=== PATIENT | female | born 1950 | race Asian ===

== ENCOUNTER 2017-12-19 00:41 | Inpatient (IN) | payer MEDICARE, OTHER ==
[~2017-12-19] VITALS: Ht 149.9 cm; Wt 56.3 kg
[2017-12-19] MEDS ORDERED: METO-264 PO (01:05)
[2017-12-19 01:26] LABS: BASOPHILS # (AUTO) 0.04 x10^3/uL (0-0.1); BASOPHILS % (AUTO) 0 % (0-1); EOSINOPHILS % (AUTO) 5 % (1-7); LYMPHOCYTES # (AUTO) 3.13 x10^3/uL (1-3.4); LYMPHOCYTES % (AUTO) 33 % (22-44); MD NO; MEAN CORPUSCULAR HEMOGLOBIN 29.5 pg (27.0-34.8); MEAN CORPUSCULAR HGB CONC 33.6 g/dL (32.4-35.8); MEAN CORPUSCULAR VOLUME 87.8 fL (80-100); MEAN PLATELET VOLUME 7.7 fL (7.4-10.4); MONOCYTES # (AUTO) 0.49 x10^3/uL (0.2-0.8); MONOCYTES % (AUTO) 5 % (2-9); NEUTROPHILS # (AUTO) 5.27 x10^3/uL (1.8-6.8); NEUTROPHILS % (AUTO) 56 % (42-75); PLATELET COUNT 305 x10^3/uL (130-400); RED BLOOD COUNT 4.61 x10^6/uL (3.82-5.3); RED CELL DISTRIBUTION WIDTH 14.1 % (9.6-15.2)
[2017-12-19 01:36] LABS: ALBUMIN 3.2 g/dL (3.4-5.0); ANION GAP 7 mmol/L (5-15); CALCIUM 8.7 mg/dL (8.5-10.1); CHLORIDE 110 mmol/L (98-107); CREATININE 1.11 mg/dL (0.55-1.02)
[2017-12-19] MEDS ORDERED: HEPARIN 5,000 UNITS/ML, 1ML IV PRN (02:30)
[2017-12-19] MEDS ORDERED: HEPARIN 25,000 UNITS/500ML PMX 500 ML IV PRN ×2 (02:30→04:12)
[2017-12-19] MEDS ORDERED: HEPARIN 5,000 UNITS/ML, 1ML IV ONE (02:30)
[2017-12-19] MEDS ORDERED: OMNIPAQUE 350 MG/ML, 100ML BOTTLE ONE (02:40)
[2017-12-19] MEDS ORDERED: DOCUSATE 100 MG CAPSULE PO PRN (03:30)
[2017-12-19] MEDS ORDERED: morphine SULFATE 10 MG/ML, 1ML IVPush PRN (03:30)
[2017-12-19] MEDS ORDERED: NITROGLYCERIN 0.4 MG BOTTLE (25 TABS) SL PRN (03:30)
[2017-12-19] MEDS ORDERED: ONDANSETRON 2MG/ML, 2ML IVPush PRN (03:30)
[2017-12-19] MEDS ORDERED: BISACODYL 10 MG SUPP PR PRN (03:30)
[2017-12-19] MEDS ORDERED: LABETALOL 5MG/ML, 20ML IVPush PRN (03:30)
[2017-12-19] MEDS ORDERED: POLYETHYLENE GLYCOL 17 GM PACKET PO PRN (03:30)
[2017-12-19] MEDS ORDERED: PROMETHAZINE 25 MG/ML, 1ML IM PRN (03:30)
[2017-12-19] MEDS ORDERED: ACETAMINOPHEN 325 MG TABLET PO PRN (03:30)
[2017-12-19] MEDS ORDERED: OXYcodone IR 5MG TABLET PO PRN (03:30)
[2017-12-19] MEDS ORDERED: GABAPENTIN 300 MG CAPSULE PO PRN (03:30)
[2017-12-19] MEDS ORDERED: ONDANSETRON ODT 4 MG PO PRN (03:30)
[2017-12-19] MEDS: SODIUM CHLORIDE 0.9% 1,000 ML IV SCH ×3 (03:33→15:49)
[2017-12-19] MEDS: ASPIRIN 325 MG TABLET EC PO SCH (05:50)
[2017-12-19 06:13] VITALS: BP 150/78
[2017-12-19 06:50] LABS: TROPONIN I 0.247 ng/mL (0.000-0.045)
[2017-12-19 07:18] LABS: FREE T4 (FREE THYROXINE) 1.3 ng/dL (0.76-1.46); THYROID STIMULATING HORMONE 1.72 mIU/L (0.358-3.740)
[2017-12-19 07:49] LABS: HEMOGLOBIN A1C 6.2 % (4.2-6.3)
[2017-12-19 08:31] VITALS: BP 181/80
[2017-12-19] MEDS: METOPROLOL SUCCINATE 50 MG TAB.ER.24H PO SCH (08:44)
[2017-12-19] MEDS: FAMOTIDINE 20 MG/2 ML IVPush SCH ×2 (08:44→21:29)
[2017-12-19 08:47] VITALS: BP 194/65
[2017-12-19] MEDS: hydrALAzine 20 MG/ML, 1ML IVPush PRN ×2 (09:07→16:02)
[2017-12-19 10:59] VITALS: BP 123/64
[2017-12-19] MEDS ORDERED: MIDAZOLAM 1 MG/ML, 2ML ONE (11:44)
[2017-12-19] MEDS ORDERED: VERAPAMIL 2.5 MG/ML, 2ML ONE (11:44)
[2017-12-19] MEDS ORDERED: LIDOCAINE-MPF 2%, 2ML ONE (11:44)
[2017-12-19] MEDS ORDERED: FENTANYL PF 100 MCG/2ML ONE (11:44)
[2017-12-19] MEDS ORDERED: BIVALIRUDIN 250 MG ONE (11:45)
[2017-12-19] MEDS ORDERED: TICAGRELOR 90 MG TABLET ONE (11:45)
[2017-12-19] MEDS ORDERED: HEPARIN 1,000 UNITS/ML, 10ML ONE (12:02)
[2017-12-19] MEDS ORDERED: ONDANSETRON 2MG/ML, 2ML ONE ×2 (12:26→12:35)
[2017-12-19 12:40] LABS: TROPONIN I 0.207 ng/mL (0.000-0.045)
[2017-12-19] MEDS ORDERED: PHENYLEPHRINE 10 MG/ML ONE (13:13)
[2017-12-19] MEDS ORDERED: BIVALIRUDIN 500 MG in DEXTROSE 5% 100 ML IV SCH (13:30)
[2017-12-19] MEDS: TICAGRELOR 90 MG TABLET PO SCH (21:29)
[2017-12-20] MEDS: SODIUM CHLORIDE 0.9% 1,000 ML IV SCH (01:18)
[2017-12-20 04:00] VITALS: BP 142/50
[2017-12-20 04:23] LABS: BASOPHILS # (AUTO) 0.07 x10^3/uL (0-0.1); BASOPHILS % (AUTO) 1 % (0-1); EOSINOPHILS # (AUTO) 0.05 x10^3/uL (0-0.4); EOSINOPHILS % (AUTO) 1 % (1-7); LYMPHOCYTES % (AUTO) 26 % (22-44); MD NO; MEAN CORPUSCULAR HEMOGLOBIN 29.3 pg (27.0-34.8); MEAN CORPUSCULAR HGB CONC 33.7 g/dL (32.4-35.8); MEAN PLATELET VOLUME 7.5 fL (7.4-10.4); MONOCYTES % (AUTO) 7 % (2-9); NEUTROPHILS # (AUTO) 6.22 x10^3/uL (1.8-6.8); NEUTROPHILS % (AUTO) 65 % (42-75); PLATELET COUNT 283 x10^3/uL (130-400); RED BLOOD COUNT 4.16 x10^6/uL (3.82-5.3); RED CELL DISTRIBUTION WIDTH 14.2 % (9.6-15.2)
[2017-12-20 04:32] LABS: ALBUMIN 2.9 g/dL (3.4-5.0); CHLORIDE 115 mmol/L (98-107)
[2017-12-20 04:34] LABS: ALKALINE PHOSPHATASE 74 U/L (45-117); HDL CHOLESTEROL (DIRECT) 37 mg/dL (40-60); TOTAL PROTEIN 7.3 g/dL (6.4-8.2)
[2017-12-20 04:35] LABS: ALANINE AMINOTRANSFERASE 20 U/L (12-78); ANION GAP 9 mmol/L (5-15); CALCIUM 8.3 mg/dL (8.5-10.1)
[2017-12-20 04:38] LABS: BILIRUBIN,TOTAL 0.5 mg/dL (0.2-1.0); CHOL/HDL RATIO 4.3; CHOLESTEROL, TOTAL 160 mg/dL (140-239); CREATININE 1.06 mg/dL (0.55-1.02); HDL CHOL % 23 % (28-40); LDL CHOLESTEROL,CALCULATED 87 mg/dL (54-169); LDL/HDL RATIO 2.4 (0.5-3.0); TRIGLYCERIDES 178 mg/dL (50-200); VLDL CHOLESTEROL 36 mg/dL (0-25)
[2017-12-20] MEDS: ASPIRIN 325 MG TABLET EC PO SCH (06:40)
[2017-12-20] MEDS: METOPROLOL SUCCINATE 50 MG TAB.ER.24H PO SCH (08:39)
[2017-12-20] MEDS: ASPIRIN 81 MG TABLET EC PO SCH (08:39)
[2017-12-20] MEDS: FAMOTIDINE 20 MG/2 ML IVPush SCH ×2 (08:39→20:58)
[2017-12-20] MEDS: TICAGRELOR 90 MG TABLET PO SCH ×2 (08:39→20:59)
[2017-12-20 09:05] LABS: MICROSCOPIC NOT IND
[2017-12-20 09:07] LABS: CULTURE INDICATED? NO
[2017-12-20 20:31] VITALS: BP 181/76
[2017-12-20] MEDS ORDERED: ATORVASTATIN 40 MG TABLET PO SCH (21:00)
[2017-12-21 03:58] VITALS: BP 169/77
[2017-12-21 04:14] VITALS: BP 177/69
[2017-12-21] MEDS: hydrALAzine 20 MG/ML, 1ML IVPush PRN (04:15)
[2017-12-21 05:14] LABS: BASOPHILS # (AUTO) 0.04 x10^3/uL (0-0.1); BASOPHILS % (AUTO) 0 % (0-1); EOSINOPHILS # (AUTO) 0.16 x10^3/uL (0-0.4); EOSINOPHILS % (AUTO) 2 % (1-7); LYMPHOCYTES # (AUTO) 2.16 x10^3/uL (1-3.4); LYMPHOCYTES % (AUTO) 21 % (22-44); MD NO; MEAN CORPUSCULAR HEMOGLOBIN 30.2 pg (27.0-34.8); MEAN CORPUSCULAR HGB CONC 34.4 g/dL (32.4-35.8); MEAN CORPUSCULAR VOLUME 87.6 fL (80-100); MEAN PLATELET VOLUME 7.9 fL (7.4-10.4); MONOCYTES # (AUTO) 0.49 x10^3/uL (0.2-0.8); MONOCYTES % (AUTO) 5 % (2-9); NEUTROPHILS # (AUTO) 7.53 x10^3/uL (1.8-6.8); NEUTROPHILS % (AUTO) 73 % (42-75); PLATELET COUNT 297 x10^3/uL (130-400); RED BLOOD COUNT 4.31 x10^6/uL (3.82-5.3); RED CELL DISTRIBUTION WIDTH 14.2 % (9.6-15.2)
[2017-12-21 05:18] LABS: ALANINE AMINOTRANSFERASE 19 U/L (12-78); ALBUMIN 3.2 g/dL (3.4-5.0); ANION GAP 9 mmol/L (5-15); CALCIUM 8.7 mg/dL (8.5-10.1); CHLORIDE 110 mmol/L (98-107); CREATININE 1.09 mg/dL (0.55-1.02)
[2017-12-21 05:20] LABS: ALKALINE PHOSPHATASE 73 U/L (45-117); BILIRUBIN,TOTAL 0.6 mg/dL (0.2-1.0)
[2017-12-21] MEDS: FAMOTIDINE 20 MG/2 ML IVPush SCH (07:50)
[2017-12-21] MEDS: METOPROLOL SUCCINATE 50 MG TAB.ER.24H PO SCH (07:53)
[2017-12-21] MEDS: TICAGRELOR 90 MG TABLET PO SCH (07:53)
[2017-12-21] MEDS: ASPIRIN 81 MG TABLET EC PO SCH (07:53)
[2017-12-21 07:54] VITALS: BP 153/64
[2017-12-21] MEDS ORDERED: LISINOPRIL 10 MG TABLET PO SCH (09:00)
[2017-12-21] MEDS ORDERED: ATOR40TA78 PO (14:01)
[2017-12-21] MEDS ORDERED: TICA90TA PO (14:01)
[2017-12-21] MEDS ORDERED: ASPI-621 PO (14:01)
[2017-12-21] MEDS ORDERED: LISI-167 PO (14:01)
[2017-12-21] MEDS ORDERED: NITR0.4T SL (14:01)
== END 2017-12-21 16:10 | disposition home or self-care (01) | DRG 246 ==
LOC: ED 01:14 → EDIP 02:29 → 5SO 02:55 → CCU 13:36 → 5SO 12-20 17:57
PROVIDERS: ADMIT Internal Medicine; ATTEND Internal Medicine
PROC: 027034Z Dilation of Coronary Artery, One Artery with Drug-eluting Intraluminal Device, Percutaneous Approach (ICD-10-PCS; principal; 2017-12-19)
PROC: 4A023N7 Measurement of Cardiac Sampling and Pressure, Left Heart, Percutaneous Approach (ICD-10-PCS; 2017-12-19)
PROC: B2111ZZ Fluoroscopy of Multiple Coronary Arteries using Low Osmolar Contrast (ICD-10-PCS; 2017-12-19)
DX: I21.19 ST elevation (STEMI) myocardial infarction involving other coronary artery of inferior wall (principal); N17.0 Acute kidney failure with tubular necrosis; E44.0 Moderate protein-calorie malnutrition; E87.2 Acidosis; Z96.642 Presence of left artificial hip joint; M16.11 Unilateral primary osteoarthritis, right hip; Z96.651 Presence of right artificial knee joint; I10 Essential (primary) hypertension; E78.5 Hyperlipidemia, unspecified; G47.00 Insomnia, unspecified; I25.10 Atherosclerotic heart disease of native coronary artery without angina pectoris; I25.2 Old myocardial infarction; Z87.891 Personal history of nicotine dependence; Z90.710 Acquired absence of both cervix and uterus; Z68.25 Body mass index [BMI] 25.0-25.9, adult
CPT/HCPCS: 0399T; 36415; 71045; 71275; 80048; 80053; 80061; 81003; 82040; 83036; 83735; 83880; 84100; 84439; 84443; 84484; 85025; 85520; 87081; 93005; 93306; 93454; 99156; 99157; 99291; C1760; C1769; C1894; J0583; J1644; J2250; J2405; J3010; J3490; Q9967; C1725; C1874; C1887; J0360; J2370; J7030; S0028

== ENCOUNTER → 2018-02-09 | Outpatient (CLI) | payer MEDICARE, OTHER ==
[~2018-02-09] MED LIST: ASPI-621 PO; ATOR40TA78 PO; LISI-167 PO; METO-264 PO; NITR0.4T SL; TICA90TA PO
== END | disposition home or self-care (01) ==
LOC: CFH 15:01
PROVIDERS: ATTEND Internal Medicine Cardiovascular Disease
DX: I34.0 Nonrheumatic mitral (valve) insufficiency (principal); I34.8 Other nonrheumatic mitral valve disorders; I11.9 Hypertensive heart disease without heart failure; I25.10 Atherosclerotic heart disease of native coronary artery without angina pectoris; I25.2 Old myocardial infarction; E78.5 Hyperlipidemia, unspecified
CPT/HCPCS: 93306

== ENCOUNTER → 2018-02-19 | Outpatient (CLI) | payer MEDICARE, OTHER ==
[2018-02-19 12:52] LABS: ALBUMIN 3.5 g/dL (3.4-5.0); ANION GAP 8 mmol/L (5-15); CALCIUM 9.2 mg/dL (8.5-10.1); CHLORIDE 105 mmol/L (98-107)
[2018-02-19 12:58] LABS: ALANINE AMINOTRANSFERASE 56 U/L (12-78); ALKALINE PHOSPHATASE 255 U/L (45-117); BILIRUBIN,TOTAL 0.5 mg/dL (0.2-1.0); CHOL/HDL RATIO 2.5; CHOLESTEROL, TOTAL 119 mg/dL (140-239); CREATININE 1.14 mg/dL (0.55-1.02); HDL CHOL % 40 % (28-40); HDL CHOLESTEROL (DIRECT) 48 mg/dL (40-60); LDL CHOLESTEROL,CALCULATED 43 mg/dL (54-169); LDL/HDL RATIO 0.9 (0.5-3.0); TOTAL PROTEIN 9.6 g/dL (6.4-8.2); TRIGLYCERIDES 139 mg/dL (50-200); VLDL CHOLESTEROL 28 mg/dL (0-25)
== END | disposition home or self-care (01) ==
LOC: CFH 08:12
PROVIDERS: ATTEND Internal Medicine Cardiovascular Disease
DX: I10 Essential (primary) hypertension (principal); E78.2 Mixed hyperlipidemia
CPT/HCPCS: 36415; 80053; 80061

== ENCOUNTER → 2019-08-25 | Outpatient (CLI) | payer MEDICARE, OTHER ==
[~2019-08-25] MED LIST changes: -ASPI-621 PO; +ASPI81TA45 PO; -NITR0.4T SL; +NITR0.4T41 SL; +REGADENOSON 0.4 MG/5 ML SYRINGE ONE
== END | disposition home or self-care (01) ==
LOC: CFH 08:07
PROVIDERS: ATTEND Internal Medicine Cardiovascular Disease
DX: Z01.810 Encounter for preprocedural cardiovascular examination (principal); I10 Essential (primary) hypertension; I21.21 ST elevation (STEMI) myocardial infarction involving left circumflex coronary artery
CPT/HCPCS: 78452; 93017; A9502; J2785